=== PATIENT | female | born 1975 | race Caucasian/White ===

== ENCOUNTER 2017-07-23 17:38 | Emergency (ER) | payer OTHER ==
[~2017-07-23] VITALS: Ht 167.6 cm; Wt 99.8 kg
[~2017-07-23 17:38] MED LIST: ASPI325 PO; Bactrim Ds Tab1 EACH PO; CEPH500 PO; Crutch1 EACH MISC; FAMO40 PO; FLUO20 PO; HYDHCL25 PO; IBUP600 PO; IBUP800 PO; LORA.5 PO; Norco 5-325 Ta1 EACH PO; PRED10 PO
[2017-07-23] MEDS ORDERED: NEO-POLYCIN EY3.5 GM RIGHTEYE (18:21)
== END 2017-07-23 18:26 | disposition home or self-care (01) ==
LOC: ER 17:38
DX: S05.01XA Injury of conjunctiva and corneal abrasion without foreign body, right eye, initial encounter (principal); W22.8XXA Striking against or struck by other objects, initial encounter; Z88.1 Allergy status to other antibiotic agents; Z88.8 Allergy status to other drugs, medicaments and biological substances; Z91.018 Allergy to other foods; F17.200 Nicotine dependence, unspecified, uncomplicated
CPT/HCPCS: 99283

== ENCOUNTER 2019-03-12 16:22 | Emergency (ER) | payer OTHER ==
[~2019-03-12] VITALS: Ht 170.2 cm; Wt 99.8 kg
[~2019-03-12 16:22] MED LIST changes: +NEO-POLYCIN EY3.5 GM RIGHTEYE
[2019-03-12] MEDS ORDERED: Roxicodone5 MG PO (18:56)
== END 2019-03-12 19:17 | disposition home or self-care (01) ==
LOC: ER 16:22
DX: S52.002A Unspecified fracture of upper end of left ulna, initial encounter for closed fracture (principal); M25.561 Pain in right knee; M25.562 Pain in left knee; F17.200 Nicotine dependence, unspecified, uncomplicated; V29.9XXA Motorcycle rider (driver) (passenger) injured in unspecified traffic accident, initial encounter
CPT/HCPCS: 29105; 73080; 73110; 73560-LT; 73560-RT; 96372-59; 99284-25; A9270; J1885

== ENCOUNTER 2019-04-15 23:14 | Emergency (ER) | payer OTHER ==
[~2019-04-15] VITALS: Ht 170.2 cm; Wt 115.7 kg
[~2019-04-15 23:14] MED LIST changes: +Roxicodone5 MG PO
[2019-04-16] MEDS ORDERED: Percocet 5-3251 EACH PO (00:37)
== END 2019-04-16 00:49 | disposition home or self-care (01) ==
LOC: ER 23:14
DX: S92.421A Displaced fracture of distal phalanx of right great toe, initial encounter for closed fracture (principal); Z88.1 Allergy status to other antibiotic agents; Z91.012 Allergy to eggs; F17.200 Nicotine dependence, unspecified, uncomplicated; W19.XXXA Unspecified fall, initial encounter
CPT/HCPCS: 73630; 99283-25

== ENCOUNTER 2021-05-31 12:12 | Day surgery (SDC) | payer OTHER ==
[~2021-05-31] VITALS: Ht 167.6 cm; Wt 141.4 kg
[~2021-05-31 12:12] MED LIST changes: +Percocet 5-3251 EACH PO
--- NOTE | 2021-05-31 13:19 | NUR ---
05/31/21 1319 Argelia Burns GTT IN OD @ 1233. PLEDGIT IN OD @ 1230.
== END 2021-05-31 14:28 | disposition home or self-care (01) ==
LOC: ORSCSDS 12:12
PROVIDERS: Ophthalmology
PROC: 08RJ3JZ Replacement of Right Lens with Synthetic Substitute, Percutaneous Approach (ICD-10-PCS; principal; 2021-05-31 13:30)
DX: H25.13 Age-related nuclear cataract, bilateral (principal); E66.01 Morbid (severe) obesity due to excess calories; Z68.43 Body mass index [BMI] 50.0-59.9, adult; Z87.891 Personal history of nicotine dependence; Z79.899 Other long term (current) drug therapy
CPT/HCPCS: J2001; J2250; J3010; J3301; J7040; V2632

== ENCOUNTER 2021-06-21 11:59 | Day surgery (SDC) | payer OTHER ==
[~2021-06-21] VITALS: Ht 167.6 cm; Wt 141.7 kg
--- NOTE | 2021-06-21 12:20 | NUR ---
06/21/21 1220 Alma Rosa Lamas CALL LIGHT WITHIN REACH. TETRACAINE AT 1215 AND PLEDGETT AT 1217 EYE DROPS IN THE LEFT EYE.
== END 2021-06-21 13:48 | disposition home or self-care (01) ==
LOC: ORSCSDS 11:59
PROVIDERS: Ophthalmology
PROC: 08RK3JZ Replacement of Left Lens with Synthetic Substitute, Percutaneous Approach (ICD-10-PCS; principal; 2021-06-21 13:15)
DX: H25.12 Age-related nuclear cataract, left eye (principal); E66.01 Morbid (severe) obesity due to excess calories; Z68.43 Body mass index [BMI] 50.0-59.9, adult; Z87.891 Personal history of nicotine dependence; Z79.899 Other long term (current) drug therapy
CPT/HCPCS: J2001; J2250; J3010; J3301; J7040; V2632

== ENCOUNTER → 2022-12-11 | Outpatient (CLI) | payer OTHER | END | disposition home or self-care (01) | LOC: LAB SHORT 18:00 → LAB 18:00 | DX: L03.116 Cellulitis of left lower limb (principal) | CPT/HCPCS: 87070; 87147; 87205 ==